=== PATIENT | male | born 1975 | race Caucasian/White ===

== ENCOUNTER 2020-06-23 22:40 | Emergency (ER) | payer SELFPAY ==
[~2020-06-23] VITALS: Ht 188 cm; Wt 84.1 kg
[2020-06-23 22:51] VITALS: Ht 188 cm; Wt 84.1 kg
[2020-06-23] MEDS ORDERED: ADDERALL (22:52)
[2020-06-23] MEDS ORDERED: PROZAC (22:52)
[2020-06-23 23:29] VITALS: BP 132/89
== END 2020-06-23 23:28 | disposition home or self-care (01) ==
LOC: D.ER 22:40
DX: R45.4 Irritability and anger (principal); Z53.20 Procedure and treatment not carried out because of patient's decision for unspecified reasons; R45.851 Suicidal ideations